=== PATIENT | female | born 1985 | race Caucasian/White ===

== ENCOUNTER → 2020-08-15 | Outpatient (CLI) | payer BC ==
--- NOTE | 2020-08-15 21:10 | CT ---
EXAMINATION TYPE: CT abdomen pelvis wo con DATE OF EXAM: 08/15/2020 COMPARISON: 06/28/2013. HISTORY: UTI with history of stones. CT DLP: 423.7 mGycm Automated exposure control for dose reduction was used. TECHNIQUE: Helical acquisition of images was performed from the lung bases through the pelvis. FINDINGS: LUNG BASES: No significant abnormality is appreciated. LIVER/GB: No significant abnormality is appreciated. PANCREAS: No significant abnormality is seen. SPLEEN: No significant abnormality is seen. ADRENALS: No significant abnormality is seen. KIDNEYS: No significant abnormality is seen. FREE AIR: No free air is visualized RETROPERITONEAL ADENOPATHY: None visualized REPRODUCTIVE ORGANS: No significant abnormality is seen URINARY BLADDER: No significant abnormality is seen. PELVIC ADENOPATHY: None visualized. OSSEOUS STRUCTURES: No significant abnormality is seen. BOWEL: No significant abnormality is seen. OTHER: 4.4 cm benign-appearing right adnexal cyst. IMPRESSION: NO ACUTE ABNORMALITY OR EVIDENCE FOR OBSTRUCTIVE UROPATHY. INCIDENTAL LARGE 4.4 CM RIGHT ADNEXAL CYST. RECOMMEND correlation with outpatient ultrasound when lore orellana.
== END | disposition home or self-care (01) ==
LOC: RADCTMAIN 16:56
PROVIDERS: ATTEND Physician Assistant
DX: Z09 Encounter for follow-up examination after completed treatment for conditions other than malignant neoplasm (principal); Z87.442 Personal history of urinary calculi
CPT/HCPCS: 74176

== ENCOUNTER → 2020-08-28 | Outpatient (CLI) | payer BC ==
--- NOTE | 2020-08-28 08:29 | US ---
EXAMINATION TYPE: US transvaginal DATE OF EXAM: 08/28/2020 COMPARISON: CT 08/15/2020 CLINICAL HISTORY: R19.09 Other intra-abdominal and pelvic swelling. Patient had an ablation Area vis ualized on CT right adnexa TECHNIQUE: . Transvaginal sonographic images of the pelvis were acquired. Date of LMP: 5 years ago EXAM MEASUREMENTS: Uterus: 8.1 x 3.5 x 4.0 cm Endometrial Stripe: 0.2 cm Right Ovary: 4.2 x 2.7 x 3.4 cm Left Ovary: 2.9 x 1.4 x 1.9 cm 1. Uterus: Anteverted Heterogeneous. Hypoechoic area visualized measuring 0.7 x 0.6 x 0.7 cm, poss ible fibroid 2. Endometrium: wnl 3. Right Ovary: Cyst visualized measuring 2.2 x 1.7 x 1.9 cm . Second smaller adjacent cyst is prese nt. 4. Left Ovary: wnl, follicle is present. 5. Bilateral Adnexa: wnl 6. Posterior cul-de-sac: wnl IMPRESSION: 1. Small uterine fibroid posterior fundus. 2. Right ovarian cysts.
== END | disposition home or self-care (01) ==
LOC: RADUSWWP 07:39
PROVIDERS: ATTEND Family Medicine
DX: D25.9 Leiomyoma of uterus, unspecified (principal); N83.201 Unspecified ovarian cyst, right side
CPT/HCPCS: 76830

== ENCOUNTER → 2021-11-16 | Outpatient (CLI) | payer BC ==
[2021-11-16 10:52] LABS: Basophils # (A) 0.05 X 10*3/uL (0.00-0.10); Basophils % (A) 0.7 %; Eosinophils # (A) 0.18 X 10*3/uL (0.04-0.35); Eosinophils % (A) 2.4 %; HGB 14.9 g/dL (12.0-15.0); Immature Grans, Automated 0.3 %; Lymphocytes # (A) 2.35 X 10*3/uL (0.90-5.00); Lymphocytes % (A) 31.3 %; MCH 31.6 pg (27.0-32.0); MCHC 33.1 g/dL (32.0-37.0); MCV 95.5 fL (80.0-97.0); Mean Platelet Volume 10.7 fL (9.5-12.2); Monocytes # (A) 0.68 X 10*3/uL (0.20-1.00); Monocytes % (A) 9.1 %; NRBC Per 100 WBC 0 /100 WBCS (0.0-0.0); Neutrophils # (A) 4.22 X 10*3/uL (1.80-7.70); Neutrophils % (A) 56.2 %; Platelet Count 277 X 10*3/uL (140-440); RBC 4.71 X 10*6/uL (4.10-5.20); RDW 12.7 % (11.5-14.5)
[2021-11-16 11:18] LABS: ALT 41 U/L (8-44); AST 24 U/L (13-35); African American GFR (CKD) 127.4 (60.0-200.0); Albumin 4.4 g/dL (3.8-4.9); Albumin/Globulin Ratio 1.91 (1.60-3.17); Alkaline Phosphatase 75 U/L (41-126); BUN/Creat Ratio 18.14 Ratio (12.00-20.00); Blood Urea Nitrogen 12.7 mg/dL (9.0-27.0); Calcium 9.7 mg/dL (8.7-10.3); Carbon Dioxide 23.4 mmol/L (20.0-27.5); Chloride 104 mmol/L (96-109); Chol/HDL Ratio 4.19 Ratio; Globulin 2.3 g/dL (1.6-3.3); Glucose 85 mg/dL (70-110); LDL Cholesterol,Calculated 138.4 mg/dL (0.0-131.0); Non-African American GFR(CKD) 109.9 (60.0-200.0); Potassium 4.4 mmol/L (3.5-5.5); Sodium 139 mmol/L (135-145); Total Protein 6.7 g/dL (6.2-8.2)
== END | disposition home or self-care (01) ==
LOC: LABWHC1 07:38
PROVIDERS: ATTEND Physician Assistant Medical
DX: R07.89 Other chest pain (principal)
CPT/HCPCS: 36415; 80053; 80061; 83036; 84439; 84443; 85025; 86141